=== PATIENT | male | born 1965 | race Caucasian/White ===

== ENCOUNTER → 2016-07-14 | Day surgery (SDC) | payer OTHER ==
[2016-07-14 09:31] LABS: HCT 50.3 % (42.0-52.0); HGB 17.7 g/dl (13.2-18.0); MCH 30.2 pg (25.0-31.0); MCHC 35.2 g/dL (32.0-36.0); MCV 85.8 fL (78.0-100.0); MPV 9.4 fL (6.0-9.5); RBC 5.86 M/uL (4.70-6.00); RDW 12.5 % (11.5-14.0); WBC 7.1 K/uL (4.0-10.5)
[2016-07-14 09:43] LABS: ALBUMIN 5.2 g/dL (3.5-5.0); CREATININE 0.9 mg/dL (0.7-1.2); POTASSIUM 4.4 mmol/L (3.5-5.1); TOTAL PROTEIN 8.2 g/dL (6.4-8.3)
== END | disposition home or self-care (01) ==
LOC: FAS 08:22
PROVIDERS: Surgery
DX: Z12.11 Encounter for screening for malignant neoplasm of colon (principal); K64.1 Second degree hemorrhoids; I10 Essential (primary) hypertension; F41.9 Anxiety disorder, unspecified; M19.90 Unspecified osteoarthritis, unspecified site; E03.9 Hypothyroidism, unspecified; K21.9 Gastro-esophageal reflux disease without esophagitis; F17.210 Nicotine dependence, cigarettes, uncomplicated; Z88.8 Allergy status to other drugs, medicaments and biological substances; Z86.010 Personal history of colon polyps; Z98.890 Other specified postprocedural states; Z79.899 Other long term (current) drug therapy
CPT/HCPCS: 36415; 80053; J1100; J2704